=== PATIENT | male | born 1965 | race Caucasian/White ===

== ENCOUNTER 2022-02-27 15:13 | Outpatient (CLI) | payer OTHER, SELFPAY ==
--- NOTE | 2022-02-27 15:44 | XR_ITS ---
WS: [id number] XR shoulder LT min 2V* [id number] REASON FOR EXAM: left shoulder pain FINDINGS: No fracture or focal bone lesion. Moderate narrowing of the acromioclavicular joint with marginal sclerosis and osteophytosis. Mild narrowing of the glenohumeral joint with subchondral sclerosis and marginal osteophytosis of the glenoid and humerus. There is moderate to significant subchondral sclerosis and cystic change in the humeral greater bicep s tuberosity. No soft tissue abnormality. XR/XR shoulder LT min 2V* [id number] IMPRESSION: Moderate osteoarthritis in the acromioclavicular joint and glenoid humeral join t. Moderate to significant rotator cuff tendon arthropathy.
== END 2022-02-27 15:14 | disposition home or self-care (01) ==
LOC: RAD 15:15
PROVIDERS: PCP Clinical Nurse Specialist Adult Health; Visit Provider Clinical Nurse Specialist Adult Health
DX: M19.012 Primary osteoarthritis, left shoulder
CPT/HCPCS: 73030

== ENCOUNTER → 2022-04-24 12:15 | Outpatient (BNVA) | payer MEDICAID, SELFPAY | PROVIDERS: PCP Clinical Nurse Specialist Adult Health; Visit Provider Clinical Nurse Specialist Adult Health | DX: R19.7 Diarrhea, unspecified (principal) | CPT/HCPCS: 83630; 87177; 87209; 87493; 87506 ==

== ENCOUNTER → 2022-04-29 15:37 | Outpatient (BNVA) | payer MEDICAID, SELFPAY | PROVIDERS: PCP Clinical Nurse Specialist Adult Health; Visit Provider Clinical Nurse Specialist Adult Health | DX: R19.7 Diarrhea, unspecified (principal) | CPT/HCPCS: 80053 ==

== ENCOUNTER → 2022-07-03 13:40 | Outpatient (BNVA) | payer OTHER, SELFPAY | PROVIDERS: PCP Clinical Nurse Specialist Adult Health; Visit Provider Nurse Practitioner Family | DX: M79.644 Pain in right finger(s) (principal); M79.89 Other specified soft tissue disorders | CPT/HCPCS: 73130 ==

== ENCOUNTER → 2022-08-28 10:10 | Outpatient (BNVA) | payer MEDICAID, SELFPAY | PROVIDERS: PCP Clinical Nurse Specialist Adult Health; Visit Provider Clinical Nurse Specialist Adult Health | DX: E87.6 Hypokalemia (principal) | CPT/HCPCS: 80048 ==

== ENCOUNTER 2022-09-17 08:02 | Day surgery (SDC) | payer MEDICAID, SELFPAY ==
[2022-09-16 12:06] VITALS: BMI 22.8
[2022-09-17] VITALS (14 sets, daily range): BP systolic 129–145; BP diastolic 73–109; PULSE 62–92; RESP 16–20; TEMP 36.4–36.8; O2SAT 95–98
[2022-09-17] MEDS: sodium chloride 0.9% 1,000 ML 30 ML IV (08:29)
--- NOTE | 2022-09-17 10:25 | W.PM.OPSUD ---
Surgery/Procedure H&P Update DATE OF PROCEDURE: September 17, 2022 DATE H&P PERFORMED: 08/26/22 H&P UPDATE INFORMATION: I have reviewed H&P completed within last 30 days, I have examined patient prior to procedure and No changes to prior documentation PREOP DIAGNOSIS: Hemorrhoids PLANNED PROCEDURE: Operation Date: 09/17/22 09:35 Proposed Procedures p 00304 hemorrhoidectomy K64.9(Not Applicable) - Sher Saez DO
[2022-09-17] MEDS: ceFAZolin 2,000 MG in sodium chloride 0.9% (plus) 50 ML 100 MG IV (10:46)
[2022-09-17] MEDS: thrombin 5,000 unit SDV 5000 UNIT XX (11:18)
[2022-09-17] MEDS: acetaminophen 1,000 MG/100 ML PIGGYBACK 400 MG IV (11:18)
--- NOTE | 2022-09-17 11:29 | P.ANESASSM_ITS ---
Pre-Anesthetic Assessment Height/Weight: Height 1.68 m Weight 64.41 kg Temp Pulse Resp BP Pulse Ox O2 Del Method 97.8 F 92 18 144/97 97 09/17/22 08:21 09/17/22 08:21 09/17/22 08:21 09/17/22 08:21 09/17/22 08:21 09/17/22 08:21 Preop Diagnosis: Hemorrhoids Operation Date: 09/17/22 09:35 Proposed Procedures p 57795 hemorrhoidectomy K64.9(Not Applicable) - Sher Saez DO Familial anesthetic complications: none Was Beta Shreyas taken within 24 hours: N/A Was Clonidine taken within 24 hours: N/A Last intake: Intake Last Liquid Date 09/16/22 Last Liquid Time 18:30 Last Solid Date 09/16/22 Last Solid Time 18:30 Social Tobacco and No alcohol Exam alert, oriented x 3 and regular rate & rhythm Airway Submandibular: within normal limits Cervical ROM: within normal limits Mallampati: Class II Dentition: chipped Pulmonary Chronic Obstructive Pulmonary Disease CV/HEM Hypertension Musc/skel Lower Back Pain and Osteoarthritis/DJD Anesthetic Plan ASA status: 3 Anesthesia: General Medications/Allergies Home Medications Medication Instructions Recorded Confirmed Last Taken Type aspirin 81 mg capsule 81 mg PO DAILY 01/23/22 09/16/22 09/16/22 History hydrochlorothiazide 25 mg tablet 25 mg PO DAILY 01/23/22 09/16/22 09/16/22 History hydrocodone 7.5 mg-acetaminophen 0.5 tab PO Q4H PRN Pain 01/23/22 09/16/22 09/15/22 History 325 mg tablet albuterol sulfate 90 mcg/actuation 2 inh inhalation QID PRN shortness 08/28/22 09/16/22 09/13/22 Rx aerosol inhaler of breath or wheezing #8.5 grams diazepam 5 mg tablet See Rx Instructions PO DAILY #30 08/28/22 09/16/22 09/16/22 Rx tabs hydrocortisone 2.5 % topical cream 1 applic TN DAILY PRN hemorrhoids 08/28/22 09/16/22 09/15/22 Rx with perineal applicator #30 grams mesalamine 1.2 gram tablet,delayed 4.8 g PO DAILY 08/28/22 09/16/22 09/16/22 H istory release (Lialda) potassium chloride 10 mEq 10 meq PO DAILY #30 tabs 08/31/22 09/16/22 09/16/22 Rx tablet,extended release amoxicillin 500 mg capsule 500 mg PO BID 09/17/22 09/17/22 09/16/22 History Allergies Allergy/AdvReac Type Severity Reaction Status Date / Time No Known Allergies Allergy Unverified 09/17/22 08:10 Current Medications Generic Name Dose Route Start Last Admin Trade Name Tyson PRN Reason Stop Dose Admin Bupivacaine HCl 10 ml 09/17/22 11:16 09/17/22 11:17 Bupivacaine 0.5% Inj 10 Ml INJECTION 09/17/22 11:17 10 ml ONCE ONE Administration Bupivacaine Liposome 133 mg 09/17/22 11:15 09/17/22 11:17 Bupivacaine Liposome 13.3 Mg/Ml Sdv 10 Ml INFILTRATI 09/17/22 11:16 133 mg ONCE ONE Administration Sodium Chloride 1,000 mls @ 30 mls/hr 09/17/22 08:30 09/17/22 08:29 Sodium Chloride 0.9% IV 09/18/22 08:29 30 mls/hr .Q24H CHAYO Administration Cefazolin Sodium 2,000 mg/ 50 mls @ 100 mls/hr 09/17/22 08:22 09/17/22 11:01 Sodium Chloride IV 09/17/22 08:51 Infused [employer] ONE Infusion Protocol Acetaminophen 1,000 mg in 100 mls @ 400 mls/hr 09/17/22 11:19 09/17/22 11:18 Acetaminophen IV 09/17/22 11:33 400 mls/hr ONCE ONE Administration Thrombin 5,000 unit 09/17/22 11:16 09/17/22 11:18 Thrombin 5,000 Unit Sdv XX 09/17/22 11:17 5,000 unit ONCE ONE Administration [facility] Anesthesia Medical History (Updated 08/28/22 @ 14:02 by Nura Grimes NP) Chronic back pain Degenerative disc disease Emphysema with chronic bronchitis Was told this was early emphysema Enlarged prostate Essential hypertension Extensor tendon disruption Generalized osteoarthritis History of compression fracture of spine History of kidney stones History of scoliosis Insomnia Lymphocytic colitis Tobacco dependence Surgical History History of back surgery History of shoulder surgery Family History Mother Cancer Breast cancer Stroke Father Restless legs syndrome Social History Smoking and tobacco status: current every day smoker cigarettes [ Other cigarette details: [id number] history] Alcohol intake: current Alcohol intake frequency: holidays/special occasions only Data Anesthesia Cardiac Studies: No Data to Display
--- NOTE | 2022-09-17 11:37 | PM.OP ---
Operative Report Date of procedure: September 17, 2022 Pre-op diagnosis: Preop Diagnosis Hemorrhoids Post-op diagnosis: same Procedure done: Hemorrhoidectomy Specimens removed/disposition: Hemorrhoids and anal tags Surgeon: Dr. Sher Saez DO Anesthesia: General Estimated blood loss (mL): 5 Complications: None apparent Brief History: This very pleasant 57-year-old gentleman with hemorrhoids and anal tags that he desired excised. Hemorrhoidectomy was indicated. The risk and benefits were explained and documented. Procedure: Patient was well in the operative room and general endotracheal ovation was achieved by the department anesthesia. He was then placed into the prone jackknife position. The anus was inspected prepped and draped in usual sterile fashion. A timeout was performed. All present were in agreement. Retractor was used to examine the anus and he had sizable hemorrhoids at the left lateral and right anterior pillars. Both of these pillars were excised. The exterior most edge of the hemorrhoid was slightly ligated with electrocautery. The harmonic scalpel was then used to excise the 2 hemorrhoidal pillars. There was minimal bleeding. Some small anal tags were removed in a similar fashion. Thrombin-soaked Gelfoam was then placed into the anus. Sterile bandage was applied. Patient tolerated procedure well.
[2022-09-17] MEDS: ondansetron 2 mg/ML SDV 2 mL 4 MG IVP (11:42)
[2022-09-17] MEDS: fentaNYL 50 mcg/mL INJ 2mL IVP (12:02)
[2022-09-17] MEDS: oxyCODONE-APAP 5-325 mg Tablet 1 TAB PO (12:25)
--- NOTE | 2022-09-17 17:05 | ANE.PACU2 ---
Inpatient post-anesthesia follow up: Airway intact: Yes Vital signs: Temperature 97.5 F Pulse Rate 80 Respiratory Rate 18 Blood Pressure 133/89 Pulse Oximetry 96 Oxygen Delivery Me thod Room Air Oxygen Flow Rate Fraction of Inspir ed Oxygen Hydration adequate: Yes Nausea and vomiting: No Pain level: 3 Mental status: Baseline
== END 2022-09-17 13:05 | disposition home or self-care (01) ==
PROVIDERS: PCP Clinical Nurse Specialist Adult Health; Visit Provider Surgery
PROC: (CPT 46250; principal; 2022-09-17 09:25)
DX: K64.4 Residual hemorrhoidal skin tags (principal); J43.9 Emphysema, unspecified; I10 Essential (primary) hypertension; F17.210 Nicotine dependence, cigarettes, uncomplicated; Z79.82 Long term (current) use of aspirin; Z88.0 Allergy status to penicillin
CPT/HCPCS: 46250; 88304; C9290; J0131; J0690; J1100; J1885; J2405; J2704; J2710; J3010; J3490; J7030

== ENCOUNTER → 2022-11-27 11:08 | Outpatient (BNVA) | payer MEDICAID, SELFPAY | PROVIDERS: PCP Clinical Nurse Specialist Adult Health; Visit Provider Clinical Nurse Specialist Adult Health | DX: M19.012 Primary osteoarthritis, left shoulder (principal); I10 Essential (primary) hypertension; W57.XXXA Bitten or stung by nonvenomous insect and other nonvenomous arthropods, initial encounter | CPT/HCPCS: 80053; 85025; 85651; 86140; 86431; 86618; 86666; 86757 ==

== ENCOUNTER 2022-12-15 14:05 | Outpatient (CLI) | payer MEDICAID, SELFPAY ==
--- NOTE | 2022-12-15 14:18 | XR_ITS ---
WS: [id number] Exam: XR wrist RT min 3V* [id number] Date/Time of Exam: 12/15/2022 2:24 PM Reason For Exam: wrist pain Comparison 07/03/2022. No fracture or dislocation. 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 Degenerative changes in the i ntercarpal joints. Severe DJD at the CMC joint of the thumb. XR/XR wrist RT min 3V* [id number] IMPRESSION: 1. No acute fracture. Old fracture of the ulnar styloid. 2. Degenerative changes as above.
== END 2022-12-15 14:06 | disposition home or self-care (01) ==
PROVIDERS: PCP Clinical Nurse Specialist Adult Health; Visit Provider Obstetrics & Gynecology Gynecology
DX: M25.531 Pain in right wrist (principal); M18.9 Osteoarthritis of first carpometacarpal joint, unspecified; Z87.81 Personal history of (healed) traumatic fracture
CPT/HCPCS: 73110

== ENCOUNTER → 2023-03-05 11:02 | Outpatient (BNVA) | payer MEDICAID, SELFPAY | PROVIDERS: PCP Clinical Nurse Specialist Adult Health; Visit Provider Clinical Nurse Specialist Adult Health | DX: E87.6 Hypokalemia (principal) | CPT/HCPCS: 80048 ==

== ENCOUNTER 2023-07-06 15:29 | Outpatient (CLI) | payer MEDICAID, SELFPAY ==
--- NOTE | 2023-07-06 15:39 | XRR_ITS ---
PROCEDURE INFORMATION: Exam: XR Left Hip Exam date and time: 07/06/2023 3:46 PM Age: 58 years old Clinical indication: Hip pain; Left hip; Additional info: Left hip pain with ambulation TECHNIQUE: Imaging protocol: Radiologic exam of the left hip. Views: 2 or 3 views hip with pelvis when performed. COMPARISON: No relevant prior studies available. FINDINGS: Bones/joints: Moderate articular surface narrowing and spurring. No erosive changes. No fracture or dislocation. No acute osseous or joint abnormality. No acute fracture. Soft tissues: Unremarkable. XR/XR hip LT 2-3V wo/w pel* [id number] IMPRESSION: Moderate osteoarthritis.
== END 2023-07-06 15:30 | disposition home or self-care (01) ==
LOC: RAD 15:31
PROVIDERS: PCP Clinical Nurse Specialist Adult Health; Visit Provider General Practice
DX: M16.12 Unilateral primary osteoarthritis, left hip (principal)
CPT/HCPCS: 73502

== ENCOUNTER 2023-09-27 15:38 | Outpatient (CLI) | payer OTHER, SELFPAY ==
--- NOTE | 2023-09-27 15:47 | MR_ITS ---
WS: [id number] MRI LUMBAR SPINE NONCONTRAST TECHNIQUE: Sagittal T1, T2 and STIR imaging. Axial T1 and T2 imaging. CLINICAL INFORMATION: DDD, M51.36 COMPARISON: None. FINDINGS: Mild lumbar curve. No acute compression. Moderate spondylitic changes. L1-L2: RIGHT paracentral protrusion. Mild central canal stenosis. Moderate facet arthropathy. Mild LE FT greater than RIGHT foraminal narrowing. L2-L3: Disc bulge with moderate central canal stenosis and impingement RIGHT subarticular recess. Mod erate facet arthropathy. Moderate RIGHT and mild LEFT foraminal narrowing. L3-L4: Mild disc bulge with mild central canal stenosis. Moderate facet arthropathy. Mild bilateral f oraminal narrowing RIGHT greater than LEFT. L4-L5: Mild disc bulging with moderate central canal stenosis. Impingement on the traversing L5 nerve roots bilaterally. Moderate facet arthropathy. Mild bilateral foraminal narrowing. L5-S1: Tiny shallow central protrusion. Moderate facet arthropathy. Mild bilateral foraminal narrowin g. Slight contact of the traversing S1 nerve roots bilaterally. Mild central canal stenosis in the cervical spine on the photoengraving printer imaging at C4-C6. Visualized pelvic bony structures: Normal. Paravertebral soft tissues: Normal. IMPRESSION: 1. Moderate central canal stenosis L2-3 and L4-5 due to disc bulge with facet arthropathy and ligame ntum flavum hypertrophy. 2. Mild central canal stenosis L1-2 with impingement RIGHT subarticular recess. Mild central canal s tenosis L3-4. 3. Moderate RIGHT L2-3 foraminal narrowing. 4. Mild central canal stenosis in the cervical spine on the photoengraving printer imaging at C4-C6. This can be furt her evaluated with cervical spine MRI.
== END 2023-09-27 15:39 | disposition home or self-care (01) ==
LOC: RAD 15:39
PROVIDERS: PCP Clinical Nurse Specialist Adult Health; Visit Provider General Practice
DX: M51.36 Other intervertebral disc degeneration, lumbar region (principal); M47.816 Spondylosis without myelopathy or radiculopathy, lumbar region; M48.061 Spinal stenosis, lumbar region without neurogenic claudication; M48.02 Spinal stenosis, cervical region
CPT/HCPCS: 72148

== ENCOUNTER → 2023-10-04 16:42 | Outpatient (BNVA) | payer OTHER, SELFPAY | PROVIDERS: PCP Clinical Nurse Specialist Adult Health; Visit Provider Clinical Nurse Specialist Adult Health | DX: E87.6 Hypokalemia (principal) | CPT/HCPCS: 80048 ==

== ENCOUNTER → 2023-10-14 15:41 | Outpatient (BNVA) | payer OTHER, SELFPAY | PROVIDERS: PCP Clinical Nurse Specialist Adult Health; Visit Provider Orthopaedic Surgery | DX: M54.9 Dorsalgia, unspecified (principal); M48.062 Spinal stenosis, lumbar region with neurogenic claudication | CPT/HCPCS: 99204 ==

== ENCOUNTER → 2023-11-26 09:50 | Outpatient (BNVA) | payer OTHER, SELFPAY | PROVIDERS: PCP Clinical Nurse Specialist Adult Health; Visit Provider Family Medicine | DX: Z01.818 Encounter for other preprocedural examination (principal); D64.9 Anemia, unspecified; G25.81 Restless legs syndrome | CPT/HCPCS: 80053; 81000; 85025 ==

== ENCOUNTER 2023-12-01 06:00 | Day surgery (SDC) | payer OTHER, SELFPAY ==
[2023-12-01] VITALS (12 sets, daily range): BP systolic 109–151; BP diastolic 59–87; PULSE 63–85; RESP 14–20; TEMP 36.6–37; O2SAT 93–98; BMI 22.6
--- NOTE | 2023-12-01 | XR_ITS ---
WS: [id number] Lumbar spine, C-arm fluoroscopy views, 12/01/2023 Clinical Data: INGA PICS Comparison: None. Findings: Dr. Solano performed a lumbar decompression. XR/XR lumbar spine 2-3V* [id number] Impression: Lumbar decompression.
[2023-12-01] MEDS: sodium chloride 0.9% 1,000 ML 30 ML IV (06:26)
--- NOTE | 2023-12-01 06:36 | ANES.PREANE2 ---
Pre-Anesthetic Assessment Height/Weight: Height 1.68 m Weight 63.503 kg Temp Pulse Resp BP Pulse Ox O2 Del Method 97.9 F 85 17 149/83 96 Room Air 12/01/23 06:09 12/01/23 06:09 12/01/23 06:09 12/01/23 06:09 12/01/23 06:09 12/01/23 06:09 Preop Diagnosis: Lumbar stenosis with neurogenic claudication Operation Date: 12/01/23 07:00 Proposed Procedures p Lumbar Spine Decompression Lumbar Decompression(Not Applicable) - Adin Solano DO Last intake: Intake Last Liquid Date 11/30/23 Last Liquid Time 21:30 Last Solid Date 11/30/23 Last Solid Time 17:00 Social Tobacco 40 pack(s) per day Exam alert, oriented x 3, clear to auscultation bilaterally and regular rate & rhythm Airway Submandibular: within normal limits Cervical ROM: within normal limits Mallampati: Class I Pulmonary None reported CV/HEM Hypertension None reported Hepatic None reported GI Gastroesophageal Reflux Disease well controlled Metabolic None reported Anesthetic Plan ASA status: 2 Anesthesia: General Risk of > 500 ml blood loss (7ml/kg in children): No Medications/Allergies Home Medications Medication Instructions Recorded Confirmed Last Taken Type albuterol sulfate 90 mcg/actuation 2 inh inhalation QID PRN shortness 08/28/22 11/30/23 09/13/22 Rx aerosol inhaler of breath or wheezing #8.5 grams oxycodone-acetaminophen 7.5 mg-325 1 tab PO Q6H PRN pain #28 tabs 09/17/22 12/01/23 12/01/23 Rx mg tablet omeprazole 20 mg capsule,delayed 20 mg PO DAILY 11/27/22 11/30/23 11/30/23 History release aspirin-caffeine 500 mg-32.5 mg 1 tab PO .Q 6 hours #10 tabs 06/07/23 11/30/23 11/27/23 Rx tablet ([facility]) celecoxib 100 mg capsule 100 mg PO BID #180 caps 07/07/23 11/30/23 11/27/23 Rx hydrochlorothiazide 25 mg tablet 25 mg PO DAILY #90 tabs 10/04/23 11/30/23 11/30/23 Rx mesalamine 1.2 gram tablet,delayed 4.8 g PO DAILY 11/30/23 11/30/23 11/28/23 History release (Lialda) potassium chloride 10 mEq 10 meq PO BID 11/30/23 11/30/23 11/30/23 History tablet,extended release Allergies Allergy/AdvReac Type Severity Reaction Status Date / Time ibuprofen Allergy Intermediate stomach Verified 11/30/23 15:10 irritation naproxen Allergy Intermediate not Verified 11/30/23 15:10 effective Current Medications Generic Name Dose Route Start Last Admin Trade Name Tyson PRN Reason Stop Dose Admin Sodium Chloride 1,000 mls @ 30 mls/hr 12/01/23 06:15 12/01/23 06:26 Sodium Chloride 0.9% IV 12/02/23 06:14 30 mls/hr .Q24H CHAYO Administration PFSH Anesthesia Medical History Essential hypertension Insomnia Restless leg syndrome failed gabapentin and ropinorole. weaning off diazepam. Using marijuana. Tobacco dependence Hypokalemia r/t diarrheal stools Generalized osteoarthritis Lymphocytic colitis Emphysema with chronic bronchitis Was told this was early emphysema History of kidney stones Enlarged prostate History of compression fracture of spine History of scoliosis Degenerative disc disease Chronic back pain Follows with Dr Mendoza Extensor tendon disruption Surgical History History of hemorrhoidectomy History of shoulder surgery History of back surgery Family History Mother Cancer Breast cancer Stroke Father Restless legs syndrome Social History Smoking and tobacco/nicotine status: current every day tobacco/nicotine user cigarettes [ Other cigarette details: [id number] history] Quit status (tobacco/nicotine): quit date established Alcohol intake: current Alcohol intake frequency: holidays/special occasions only Data Anesthesia Cardiac Studies: No Data to Display
--- NOTE | 2023-12-01 06:42 | W.PM.OPSUD ---
Surgery/Procedure H&P Update DATE OF PROCEDURE: December 01, 2023 DATE H&P PERFORMED: 11/26/23 H&P UPDATE INFORMATION: I have reviewed H&P completed within last 30 days, I have examined patient prior to procedure and No changes to prior documentation PREOP DIAGNOSIS: Lumbar stenosis with neurogenic claudication PLANNED PROCEDURE: Operation Date: 12/01/23 07:00 Proposed Procedures p Lumbar Spine Decompression Lumbar Decompression(Not Applicable) - Adin Solano DO
[2023-12-01] MEDS: ceFAZolin 2,000 MG in sodium chloride 0.9% (plus) 50 ML 100 MG IV (07:00)
[2023-12-01] MEDS: lidocaine-epi 1% 20 mL INJ INJECTION (07:43)
--- NOTE | 2023-12-01 09:11 | P.OP_ITS ---
Operative Report Date of procedure: December 01, 2023 Pre-op diagnosis: Lumbar stenosis with neurogenic claudication Post-op diagnosis: same Procedure done: 1. L2-3 laminectomy with partial facetectomy 2. L3-4 laminectomy and partial facetectomy 3. L4-5 laminectomy with partial facetectomy Surgeon: Adin Solano DO Estimated blood loss (mL): 15 Procedure: 1. L2-3 laminectomy with partial facetectomy 2. L3-4 laminectomy and partial facetectomy 3. L4-5 laminectomy with partial facetectomy Patient is brought to the operative suite. After undergoing anesthesia they are placed in the prone position. All areas of impingement are well padded. Patient is then prepped and draped in the normal sterile fashion. A skin incision is made over the L2-3 level. This is confirmed under c-arm guidance. A series of dilators are passed and the tubular retractor is docked on the L2 lamina. A bovie is used to clear the soft tissue off the lamina and the L2/3 facet joint. A high speed chary is then used to perform the laminectomy and take down the medial aspect of the L 2/3 facet joint. A kerrison rongeure was then used to take down the remaining lamina and smooth the edge of the laminectomy up to the point where the ligamentum flavum attaches. Attention was then brought to the medial aspect of the facet joint. The remaining medial aspect of the superior and inferior aspect of the facet joint were taken down with the kerrison from the pedicle of L2 to L 3. The facet joint had significant hypertrophy. Attention was then brought to the Ligamentum Flavum. The ligament was taken down from the lamina of L2 to L3 and out medially to the remaining facet joint. The ligament was thick. The dura was then exposed. The dura was in good repair. The L2 nerve was then traced with a curette out the L2/3 foramen and found to be adequately decompressed. The L3 nerve was traced with a curette around the L3 pedicle. The lateral recess was opened with a kerrison helping to further decompress the L3 nerve. Wound is then irrigated copiously with saline and surgiflo is used to stop any bleeding. The tubular retractor is removed and the skin incision is made over the L3-4 level. This is confirmed under c-arm guidance. A series of dilators are passed and the tubular retractor is docked on the L3 lamina. A bovie is used to clear the soft tissue off the lamina and the L 3/4 facet joint. A high speed chary is then used to perform the laminectomy and take down the medial aspect of the L 3/4 facet joint. A kerrison rongeure was then used to take down the remaining lamina and smooth the edge of the laminectomy up to the point where the ligamentum flavum attaches. Attention was then brought to the medial aspect of the facet joint. The remaining medial aspect of the superior and inferior aspect of the facet joint were taken down with the kerrison from the pedicle of L3 to L 4. The facet joint had significant hypertrophy. Attention was then brought to the Ligamentum Flavum. The ligament was taken down from the lamina of L3 to L4 and out medially to the remaining facet joint. The ligament was thick. The dura was then exposed. The dura was in good repair. The L4 nerve was then traced with a curette out the L3/4 foramen and found to be adequately decompressed. The L4 nerve was traced with a curette around the L4 pedicle. The lateral recess was opened with a kerrison helping to further decompress the L4 nerve. Wound is then irrigated copiously with saline and surgiflo is used to stop any bleeding. The tubular retractor is removed and the skin incision is made over the L4-5 level. This is confirmed under c-arm guidance. A series of dilators are passed and the tubular retractor is docked on the L4 lamina. A bovie is used to clear the soft tissue off the lamina and the L 4/5 facet joint. A high speed chary is then used to perform the laminecto my and take down the medial aspect of the L 4/5 facet joint. A kerrison rongeure was then used to take down the remaining lamina and smooth the edge of the laminectomy up to the point where the ligamentum flavum attaches. Attention was then brought to the medial aspect of the facet joint. The remaining medial aspect of the superior and inferior aspect of the facet joint were taken down with the kerrison from the pedicle of L4 to L 5. The facet joint had significant hypertrophy. Attention was then brought to the Ligamentum Flavum. The ligament was taken down from the lamina of L4 to L5 and out medially to the remaining facet joint. The ligament was thick. The dura was then exposed. The dura was in good repair. The L4 nerve was then traced with a curette out the L4/5 foramen and found to be adequately decompressed. The L 5 nerve was traced with a curette around the L5 pedicle. The lateral recess was opened with a kerrison helping to further decompress the L5 nerve. Wound is then irrigated copiously with saline and surgiflo is used to stop any bleeding. The tubular retractor is removed and the wound is closed with vicryl and monocryl suture. Glue is then used to protect the wound. A sterile dressing is then placed. Patient was then placed in the supine position and transferred to the PACU in stable condition.
[2023-12-01] MEDS: fentaNYL 50 mcg/mL INJ 2mL IVP (09:14)
[2023-12-01] MEDS: oxyCODONE 5 mg IR Tab/Cap 10 MG PO (09:52)
--- NOTE | 2023-12-01 14:50 | ANE.PACU2 ---
Inpatient post-anesthesia follow up: Airway intact: Yes Vital signs: Temperature 98.5 F Pulse Rate 67 Respiratory Rate 16 Blood Pressure 109/59 Pulse Oximetry 94 Oxygen Delivery Me thod Room Air Oxygen Flow Rate Fraction of Inspir ed Oxygen Hydration adequate: Yes Nausea and vomiting: No Pain level: 2 Mental status: Baseline
== END 2023-12-01 10:56 | disposition home or self-care (01) ==
PROVIDERS: PCP Clinical Nurse Specialist Adult Health; Visit Provider Orthopaedic Surgery
PROC: (CPT 63005; principal; 2023-12-01 07:00)
DX: M48.062 Spinal stenosis, lumbar region with neurogenic claudication (principal)
CPT/HCPCS: 63047; 63048 ×2; 72100; 76000; J0131; J0690; J1100; J1170; J2371; J2405; J2704; J2710; J3010; J3490; J7030

== ENCOUNTER → 2023-12-14 08:31 | Outpatient (BNVA) | payer OTHER, SELFPAY | PROVIDERS: PCP Clinical Nurse Specialist Adult Health; Visit Provider Orthopaedic Surgery | DX: Z98.890 Other specified postprocedural states (principal) | CPT/HCPCS: 99024 ==

== ENCOUNTER → 2024-03-21 16:31 | Outpatient (BNVA) | payer OTHER, SELFPAY | PROVIDERS: PCP Clinical Nurse Specialist Adult Health; Visit Provider Clinical Nurse Specialist Adult Health | DX: E87.6 Hypokalemia (principal); M54.16 Radiculopathy, lumbar region | CPT/HCPCS: 80048; 85025; 85651; 86038; 86140; 86431 ==

== ENCOUNTER → 2024-03-24 09:22 | Outpatient (BNVA) | payer OTHER, SELFPAY | PROVIDERS: PCP Clinical Nurse Specialist Adult Health; Visit Provider Clinical Nurse Specialist Adult Health | DX: I10 Essential (primary) hypertension (principal); F51.01 Primary insomnia; M15.9 Polyosteoarthritis, unspecified; E87.6 Hypokalemia; Z98.890 Other specified postprocedural states | CPT/HCPCS: 80053 ==

== ENCOUNTER → 2025-04-03 13:34 | Outpatient (BNVA) | payer OTHER, SELFPAY | PROVIDERS: PCP Nurse Practitioner Family; Visit Provider Nurse Practitioner Family | DX: I10 Essential (primary) hypertension (principal) | CPT/HCPCS: 80048 ==